=== PATIENT | female | born 1990 | race Two or more races ===

== ENCOUNTER 2019-04-21 09:58 | Emergency (ER) | payer OTHER ==
[~2019-04-21] VITALS: Ht 157.5 cm; Wt 50.8 kg
--- NOTE | 2019-04-21 10:50 | NUR ---
PT BIB C/O VAGINAL IRRITATION, ITCHING, AND MILD PAIN AT ENTRANCE TO VAGINA X1 DAY. DENIES DYSURIA OR HEMATURIA. DENIES VB. SKIN WARM DRY. SCANT WHITE DISCHARGE. LMP 2KS AGO.
--- NOTE | 2019-04-21 10:50 | NUR ---
chaperoned pelvic exam with dr herbert
[2019-04-21] MEDS ORDERED: IBUPROFEN 600 MG TABLET PO ONE ×2 (11:00→11:21)
[2019-04-21 11:13] LABS: APPEARANCE,URINE Clear (CLEAR); BILIRUBIN,URINE Negative (NEGATIVE); BLOOD, URINE Negative Ery/uL (NEGATIVE); COLOR,URINE Yellow (YELLOW); KETONES,URINE Negative (NEGATIVE); LEUKOCYTE ESTERASE ,URINE Small (NEGATIVE); NITRITE, URINE Negative (NEGATIVE); PH,URINE 5.5 (5.0-8.0); PROTEIN,URINE Negative (NEGATIVE); UGLUCOSE Negative (NEGATIVE); UROBILINOGEN,URINE 0.2 EU/dL (0.2)
[2019-04-21 11:14] LABS: BACTERIA,URINE Few /HPF (None Seen); RBC,URINE 0-2 /HPF (0-2); SQUAMOUS EPITHELIAL CELL,UR Few /HPF (None Seen)
[2019-04-21] MEDS ORDERED: CEFTRIAXONE 500 MG VIAL ONE (12:25)
[2019-04-21] MEDS ORDERED: LIDOCAINE /MPF 1% VIAL 5 ML VIAL ONE (12:26)
[2019-04-21] MEDS ORDERED: AZITHROMYCIN 250 MG TABLET ONE (12:26)
[2019-04-21] MEDS ORDERED: FLUCONAZOLE (100 MG) 100 MG TABLET ONE (12:29)
[2019-04-21] MEDS ORDERED: ONDANSETRON 4 MG TAB.RAPDIS ONE (12:29)
[2019-04-21] MEDS ORDERED: MORPHINE SULFATE INJ 4 MG/ML DISP.SYRIN ONE (12:29)
[2019-04-21] MEDS ORDERED: ONDANSETRON 4 MG TAB.RAPDIS SL ONE (12:30)
[2019-04-21] MEDS ORDERED: CEFTRIAXONE 500 MG VIAL IM ONE (12:30)
[2019-04-21] MEDS ORDERED: MORPHINE SULFATE INJ 2 MG/ML DISP.SYRIN IM ONE (12:30)
[2019-04-21] MEDS ORDERED: AZITHROMYCIN 250 MG TABLET PO ONE (12:30)
[2019-04-21] MEDS ORDERED: FLUCONAZOLE (100 MG) 100 MG TABLET PO ONE (12:30)
--- NOTE | 2019-04-21 12:42 | NUR ---
Patient discharged to home in stable condition. Written and verbal after care instructions given. Patient verbalizes understanding of instruction.
[2019-04-21 12:45] VITALS: BP 107/72
[2019-04-21] MEDS ORDERED: LIDOCAINE HCL/PF 1% 30 ML VIAL IM ONE (13:00)
== END 2019-04-21 12:45 | disposition home or self-care (01) ==
LOC: ER 10:00
DX: N72 Inflammatory disease of cervix uteri (principal); N89.8 Other specified noninflammatory disorders of vagina; Z60.2 Problems related to living alone
CPT/HCPCS: 36415; 81001; 84703; 87086; 87110; 87210; 87491; 87591; 96372 ×2; 99284; J0696; J2270; J3490 ×2; Q0162; 81000-TC